=== PATIENT | female | born 1945 | race Caucasian/White ===

== ENCOUNTER 2016-12-16 11:17 | Emergency (ER) | payer OTHER, MEDICAID ==
[~2016-12-16] VITALS: Ht 157.5 cm; Wt 77.1 kg
[~2016-12-16 11:17] MED LIST: BUDE160A3 INH; DULO60CA PO; FENO145T20 PO; HYDR25TA4 PO; IMIQ5CRE4 EX; LOSA50TA6 PO; METF-312 PO; METO100T87 PO; MONT10TA34 PO; POTA20TA53 PO; SIMV-8 PO; WARF2.5T39 PO
[2016-12-16 11:35] VITALS: BP 137/61
== END 2016-12-16 12:32 | disposition home or self-care (01) ==
LOC: ER 11:17
DX: S61.512D Laceration without foreign body of left wrist, subsequent encounter (principal); I10 Essential (primary) hypertension; E11.9 Type 2 diabetes mellitus without complications; Z88.6 Allergy status to analgesic agent; Z88.2 Allergy status to sulfonamides; Z48.01 Encounter for change or removal of surgical wound dressing